=== PATIENT | female | born 1965 | race Caucasian/White ===

== ENCOUNTER 2017-06-02 04:27 | Emergency (ER) | payer SELFPAY ==
[2017-06-02 04:30] VITALS: BP 107/72; PULSE 92; RESP 15; TEMP 98.6; O2SAT 96
[2017-06-02] MEDS ORDERED: FENT50DI T-DERMAL (04:45)
[2017-06-02] MEDS ORDERED: TYLETAB34 PO (04:45)
[2017-06-02] MEDS ORDERED: ALPR0.5T3 PO (04:45)
--- NOTE | 2017-06-02 05:10 | PD ---
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 No new injury. Patient states she is followed by Dr. Hill pain management. She tells me that he gives her "only 90 pills and she needs 120." She states she ran out and she needs at least another week's worth. She tells me that her fentanyl patches are not working. She is reporting that he "only wants to give her injections." Denies any fever or chills. Reports severe, chronic, consistent right shoulder pain. Reports drinking alcohol, "only one beer" this evening. She has no other symptoms to report. History Past Medical Histgory HX Cerebrovascular Accident: Yes Social History Alcohol Use: Yes Tobacco Use: Yes Allergies-Medications (Allergen,Severity, Reaction): Coded Allergies: Sulfa (Sulfonamide Antibiotics) (Verified Allergy, Unknown, 06/02/17) Reported Meds & Prescriptions Reported Meds & Active Scripts Active Reported Alprazolam 0.5 Mg Tab 0.5 Mg PO Q8H PRN Tylenol-Codeine #3 (Acetaminophen-Codeine) 300-30 mg Tab 1 Tab PO Q4H PRN Fentanyl Patch 72 HR (Fentanyl) 50 Mcg/Hr Patch 50 Mcg T-DERMAL Q72H Remove old patch when new one placed. Review of Systems Except as stated in HPI: all other systems reviewed are Neg Physical Exam Narrative GENERAL: Well-nourished female patient, ambulatory, appears to be intoxicated, but in no acute distress. SKIN: Focused skin assessment warm/dry. HEAD: Atraumatic. Normocephalic. EYES: Pupils equal and round. No scleral icterus. No injection or drainage. ENT: No nasal bleeding or discharge. Mucous membranes pink and moist. NECK: Trachea midline. No JVD. CARDIOVASCULAR: Regular rate and rhythm. No murmur appreciated. RESPIRATORY: No accessory muscle use. Clear to auscultation. Breath sounds equal bilaterally. GASTROINTESTINAL: Abdomen soft, non-tender, nondistended. Hepatic and splenic margins not palpable. MUSCULOSKELETAL: No obvious deformities. No clubbing. No cyanosis. No edema. Right upper extremity weakness. NEUROLOGICAL: Awake and alert. No obvious cranial nerve deficits. Motor grossly within normal limits. Normal speech. Data Data Last Documented VS Vital Signs Date Time Temp Pulse Resp B/P (MAP) Pulse Ox O2 Delivery O2 Flow Rate FiO2 06/02/17 04:30 98.6 92 15 107/72 (84) 96 Room Air MDM Medical Screen Exam Complete: Yes Emergency Medical Condition: No Differential Diagnosis R shoulder pain; narcotic seeking behavior Narrative Course 52-year-old female presents to the emergency department for evaluation right shoulder pain since 2010, requesting pain medication refill for 1 week. Patient appears without distress. Assessment of the right shoulder is inconsistent but there is no deformity. Sensation is intact. His pulses are palpable. I offered the patient a shot of Toradol and a prescription for Mobic , both which she refused, telling me "that shit doesn't work; my fentanyl patches don't even work." I apologized to the patient but told her I would not be refilling any narcotic pain medication at this time. At this time there are no urgent or emergent needs for medical intervention identified. A medical screening exam was performed: At the time of evaluation the presenting medical condition was determined not to be of an emergent nature. The patient was given the option of receiving additional care, but declined. Patient was given options for additional community resources from which to obtain care. The Patient Has Been advised to seek medical attention for their presenting complaint. The patient has been advised to return to the ER at any time if an emergent condition develops. Primary Impression: Encounter for medical screening examination Condition: Ailyn Boyd Jun 02, 2017 05:10
== END 2017-06-02 14:42 | disposition left against medical advice (07) ==
LOC: NEPD 04:27
DX: M25.511 Pain in right shoulder (principal)
CPT/HCPCS: 99281